=== PATIENT | female | born 1975 | race Hispanic/Latino ===

== ENCOUNTER 2018-10-23 15:18 | Outpatient (CLI) | payer OTHER ==
--- NOTE | 2018-10-23 16:20 | MMO ---
Bilateral MAMMO Bilat Screen [facility]. CLINICAL HISTORY: Patient is 43 years old and is seen for screening. The patient has no family history of breast cancer. The patient has no personal history of cancer. VIEWS: The views performed were: bilateral craniocaudal with tomosynthesis and bilateral mediolateral oblique with tomosynthesis. FILMS COMPARED: The present examination has been compared to prior imaging studies performed at [facility] on 10/30/2014, 12/31/2015, 01/17/2017 and 01/26/2017. MAMMOGRAM FINDINGS: There are scattered fibroglandular densities. There are no suspicious masses, suspicious calcifications, or new areas of architectural distortion. IMPRESSION: THERE IS NO MAMMOGRAPHIC EVIDENCE OF MALIGNANCY. A ROUTINE FOLLOW-UP MAMMOGRAM IN 1 YEAR IS RECOMMENDED. THE RESULTS OF THIS EXAM WERE SENT TO THE PATIENT. ACR BI-RADS Category 1 - Negative MAMMOGRAPHY NOTE: 1. A negative mammogram report should not delay a biopsy if a dominant of clinically suspicious mass is present. 2. Approximately 10% to 15% of breast cancers are not detected by mammography. 3. Adenosis and dense breasts may obscure an underlying neoplasm. Reported by: MINE VICTOR MD Electonically Signed: [id number]
== END 2018-10-23 15:19 | disposition home or self-care (01) ==
LOC: BICMAMMO 15:18
PROVIDERS: ATTEND Internal Medicine
DX: Z12.31 Encounter for screening mammogram for malignant neoplasm of breast (principal)
CPT/HCPCS: 77063; 77067

== ENCOUNTER 2024-04-03 16:36 | Emergency (ER) | payer SELFPAY ==
[2024-04-03] MEDS ORDERED: Bicillin LA 1.2 MILLION UNITS/2 ML SYRINGE ONE (17:51)
[2024-04-03] MEDS ORDERED: Dexamethasone 4 MG TAB ONE (17:52)
== END 2024-04-03 18:15 | disposition home or self-care (01) ==
LOC: ERS 16:36
DX: J02.9 Acute pharyngitis, unspecified (principal)
CPT/HCPCS: 87081; 87428; 87430; 96372; 99282; J0561; J8540

== ENCOUNTER 2025-01-28 18:50 | Emergency (ER) | payer SELFPAY | END 2025-01-28 19:28 | LOC: ERS 18:50 | DX: H60.92 Unspecified otitis externa, left ear (principal) | CPT/HCPCS: 99282 ==